=== PATIENT | female | born 1960 | race Caucasian/White ===

== ENCOUNTER 2017-11-02 08:00 | Day surgery (SDC) | payer OTHER, SELFPAY ==
[2017-11-02] VITALS (7 sets, daily range): BP systolic 80–146; BP diastolic 47–107; PULSE 71–86; RESP 16–18; TEMP 36.3–36.6; O2SAT 97–100; BMI 25.6
--- NOTE | 2017-11-02 09:49 | PCM.HP.STD ---
Problem List (1) Colon cancer screening Status: Acute History of Present Illness Date of Admission: 11/02/17 The patient is a 57 year old F who presents for screening colonoscopy. Past Medical History Allergies No Known Allergies Allergy (Verified 10/28/17 11:01) Home Medications: Ambulatory Orders Medication Instructions Recorded Black Cohosh 540 mg PO DAILY 10/28/17 Calcium Carb/Mag Ox/Zinc Sulf 1 each PO DAILY 10/28/17 [Imsbotp-Jgdlkinel-Qypo Tablet] Lisinopril [Zestril] 10 mg PO QHS 10/28/17 Multivitamin [Multiple Vitamins] 1 each PO DAILY 10/28/17 Paroxetine HCl [Paxil] 20 mg PO DAILY 10/28/17 Vitamin E 800 units PO DAILY 10/28/17 Smoking Status: Never smoker Review of Systems Cardiovascular: Denies: Chest Pain, Chest Pressure, Chest Tightness, Palpitations Respiratory: Denies: Cough, Hemoptysis, Shortness of breath at rest, Shortness of breath upon exertion, Wheezing Gastrointestinal: Denies: Abdominal Pain, Constipation, Diarrhea, Hematemesis, Nausea, Melena, Vomiting VTE Information - Inpt Only VTE Present on Admission: No VTE Mechan Device Prophylaxis: None VTE Pharm Prophylaxis ordered?: No Reason prophylaxis not ordered:: Treatment Not Indicated Patient Problems: Active and Suspected Problems Colon cancer screening (Acute) - Physical Exam Lungs: Clear to auscultation Cardiovascular: Regular rate, Regular Rhythm, No murmurs Abdomen: Bowel Sounds Present, Soft, Non Tender, Non-Distended Vital Signs Temp Pulse Resp BP Pulse Ox 97.6 F L 86 18 117/72 100 11/02/17 08:30 11/02/17 08:30 11/02/17 08:30 11/02/17 08:30 11/02/17 08:30 Oxygen Delivery Method Room Air Weight: 154 lb 1.65 oz Body Mass Index (BMI) 25.6 Assessment/Plan Active and Suspected Problems Colon cancer screening (Acute) My plan is to perform a colonoscopy.
--- NOTE | 2017-11-02 09:52 | PCM.OPRPT ---
Problem List (1) Colon cancer screening Status: Acute Report of Operation Date of Procedure: 11/02/17 Pre-Operative Diagnosis: z12.11 screening colonoscopy Post-Operative Diagnosis: Same Surgery/Procedure Performed:: [id number] colonoscopy Type of Anesthesia:: MAC Anesthesiologist: Yeison Med[place]in Description of Procedure: Patient was brought into the endoscopy suite. Placed in the left lateral decubitus position. Given graded anesthesia. Scope was inserted into the rectum and directed through the sigmoid colon, descending colon, transverse colon, ascending colon, to the cecum. Operative findings: 1. Cecum: Normal appearance no mass lesions normal ileocecal valve. 2. Ascending colon: Normal appearance no mass lesions 3. Transverse colon: Normal appearance no mass lesions. 4. Descending colon: Normal appearance no mass lesions. 5. Sigmoid colon: Normal appearance no mass lesions. I spent a long time going back and forth her sigmoid colon initially thought I saw a polyp was unable to get around it with a snare and the colon was significantly spasming. She did get an amp of glucagon. I went back and forth 4 times in this area and I was unable to relocate the polyp. In fact I am not even sure there was a polyp. However it was suspicious for looking sessile even though I could not reproduce it. 6. Rectum: Normal appearance no mass lesions retroflexion did not show any significant internal hemorrhoidal disease. The scope was withdrawn digital rectal exam was performed showing smooth anus with no nodules The patient will need another colonoscopy in 1-3 years. I believe it is important for us to put her on surveillance as if she did have a small polyp. - Admit VTE Documentation VTE Present on Admission: No VTE Mechan Device Prophylaxis: None VTE Pharm Prophylaxis ordered?: No Reason prophylaxis not ordered:: Treatment Not Indicated
== END 2017-11-02 10:49 | disposition home or self-care (01) ==
LOC: EN 08:01 → AC 08:04 → ACINP 08:27 → AC 08:29
PROVIDERS: Family Provider Student in an Organized Health Care Education/Training Program; PCP Student in an Organized Health Care Education/Training Program; Visit Provider Surgery
PROC: 0DJD8ZZ Inspection of Lower Intestinal Tract, Via Natural or Artificial Opening Endoscopic (ICD-10-PCS; CPT 45378; principal; 2017-11-02 08:55)
DX: Z12.11 Encounter for screening for malignant neoplasm of colon (principal); I10 Essential (primary) hypertension; Z79.899 Other long term (current) drug therapy
CPT/HCPCS: 45378; J7120; J1610; J2405

== ENCOUNTER → 2017-12-08 18:21 | Outpatient (CLI) | payer OTHER, SELFPAY | PROVIDERS: Visit Provider Nurse Practitioner Adult Health | DX: R31.9 Hematuria, unspecified (principal) | CPT/HCPCS: 87086; 87088 ==

== ENCOUNTER 2017-12-13 04:45 | Emergency (ER) | payer OTHER, SELFPAY ==
[2017-12-13 04:46] VITALS: BP 144/90; PULSE 79; RESP 17; TEMP 37; O2SAT 98; BMI 26.4
--- NOTE | 2017-12-13 05:18 | ED.VISSUMM ---
- ER Visit Summary Date of Service: 12/13/17 Chief Complaint: [] Abdominal pain History of Present Illness: The patient is a 57 F [] complaining of right lower quadrant/right abdominal/adnexal tenderness. She reports several extensive workups including negative CT scan of the abdomen/pelvis. She feels that the likely cause of her discomfort is from a mobile surgical tubal ligation clip that has migrated. She reportedly saw a urologist who informed her that her pain is not urological. She seen her PCP twice for the same complaint and was placed on short-term [place]. She is scheduled to see her MUNICIPAL ENGINEER to evaluate the possibility of removing the surgical clip and/or trying to definitively identify the cause of the pain. Physical Examination: [] Afebrile, vital signs stable. 57-year-old female no acute distress. Examination of the abdomen reveals mild right lower quadrant/right adnexal tenderness on palpation. No guarding or rebound tenderness. Remainder of exam is unremarkable. Test Results: [] None. Emergency Department Course and Treatment: [] In light of the patient having had several previous extensive workups including negative CT scans and evaluation by urology, I did not feel that any diagnostic or laboratory testing was warranted. Patient had a relatively benign examination and was amenable to a single dose of subcutaneous Dilaudid and a short-term prescription for [place] until she can see her MUNICIPAL ENGINEER and potentially other specialist to identify the underlying etiology of her discomfort. The leading thought is that this is likely from a surgical clip from a previous tubal ligation several years ago. Patient is amenable to this plan and close follow-up. Her is the bedside and will drive her home. Treatment Plan: [] Follow-up with MUNICIPAL ENGINEER for evaluation of possible surgical clip causing discomfort. Disposition: [] Discharge, stable. Impression: [] Acute right lower quadrant abdominal pain, unknown etiology This note was generated with [employer] dictation software. It may contain incorrect words, spelling, and punctuation that were not noted in review of the chart prior to signing ED Disposition - Plan for ED Patient: Chief Complaint: Flank Pain Referrals: Waldo Hernandez DO [Primary Care Provider] -
--- NOTE | 2017-12-13 05:22 | ED.DCSUM_ITS ---
- ER Visit Summary Date of Service: 12/13/17 Chief Complaint: [] Abdominal pain History of Present Illness: The patient is a 57 F [] complaining of right lower quadrant/right abdominal/adnexal tenderness. She reports several extensive workups including negative CT scan of the abdomen/pelvis. She feels that the likely cause of her discomfort is from a mobile surgical tubal ligation clip that has migrated. She reportedly saw a urologist who informed her that her pain is not urological. She seen her PCP twice for the same complaint and was placed on short-term [place]. She is scheduled to see her HOME HEALTH CNA to evaluate the possibility of removing the surgical clip and/or trying to definitively identify the cause of the pain. Physical Examination: [] Afebrile, vital signs stable. 57-year-old female no acute distress. Examination of the abdomen reveals mild right lower quadrant/right adnexal tenderness on palpation. No guarding or rebound tenderness. Remainder of exam is unremarkable. Test Results: [] None. Emergency Department Course and Treatment: [] In light of the patient having had several previous extensive workups including negative CT scans and evaluation by urology, I did not feel that any diagnostic or laboratory testing was warranted. Patient had a relatively benign examination and was amenable to a single dose of subcutaneous Dilaudid and a short-term prescription for [place] until she can see her HOME HEALTH CNA and potentially other specialist to identify the underlying etiology of her discomfort. The leading thought is that this is likely from a surgical clip from a previous tubal ligation several years ago. Patient is amenable to this plan and close follow-up. Her is the bedside and will drive her home. Treatment Plan: [] Follow-up with HOME HEALTH CNA for evaluation of possible surgical clip causing discomfort. Disposition: [] Discharge, stable. Impression: [] Acute right lower quadrant abdominal pain, unknown etiology This note was generated with [employer] dictation software. It may contain incorrect words, spelling, and punctuation that were not noted in review of the chart prior to signing ED Disposition - Plan for ED Patient: Chief Complaint: Flank Pain Referrals: Waldo Hernandez DO [Primary Care Provider] -
--- NOTE | 2017-12-13 05:22 | ED.DEP ---
ED Disposition - Plan for ED Patient: Disposition: Home or Assisted Living Chief Complaint: Flank Pain Instructions: ED Abdominal Pain Unkn Cause Prescriptions: Hydrocodone/Acetaminophen [[place] 5-325 Tablet] 1 ea PO 4X/DAY PRN PRN #12 tab PRN Reason: Pain Referrals: Waldo Hernandez DO [Primary Care Provider] -
--- NOTE | 2017-12-13 05:25 | DCINST.ED_ITS ---
ED Disposition - Plan for ED Patient: Disposition: Home or Assisted Living Chief Complaint: Flank Pain Instructions: ED Abdominal Pain Unkn Cause Prescriptions: Hydrocodone/Acetaminophen [[place] 5-325 Tablet] 1 ea PO 4X/DAY PRN PRN #12 tab PRN Reason: Pain Referrals: Waldo Hernandez DO [Primary Care Provider] -
[2017-12-13] MEDS: HYDROmorphone 1 MG/ML Syringe SC (05:31)
[2017-12-13 06:01] VITALS: BP 137/84; PULSE 81; RESP 16; O2SAT 97
--- NOTE | 2017-12-13 06:02 | ED.RN ---
NO REACTION NOTED AT INJECTION SITE.
== END 2017-12-13 06:02 | disposition home or self-care (01) ==
PROVIDERS: Emergency Provider Emergency Medicine; Family Provider Student in an Organized Health Care Education/Training Program; PCP Student in an Organized Health Care Education/Training Program
DX: R10.31 Right lower quadrant pain (principal); I10 Essential (primary) hypertension; Z98.51 Tubal ligation status; Z79.899 Other long term (current) drug therapy
CPT/HCPCS: 96372; 99282

== ENCOUNTER 2017-12-25 05:59 | Day surgery (SDC) | payer OTHER, SELFPAY ==
[2017-12-25] VITALS (10 sets, daily range): BP systolic 95–134; BP diastolic 58–80; PULSE 66–105; RESP 13–16; TEMP 36.2–36.8; O2SAT 90–98; BMI 25.4
--- NOTE | 2017-12-25 | FALS_PTH ---
PATIENT: RO MICHELLE LOC: [facility] [place] U#:[id number] AGE/SX: 57/F ROOM: RE12/25/[address]: Dr. Gela Croft MD : [id number] BED: DIS: 12/25/2017 SPEC #: [id number] RECD: 12/25/17 12:35 STATUS: RICCARDO MAKENNA #: [id number] COBY: 12/25/17 00:[address]: Gela Croft DEPT: SURGICAL PATHOLOGY RECD BY: Osman Dixon ENTERED: 12/25/17 12:35 SP TYPE: FALL TUBES OTHR DR: Dr. Waldo Hernandez, DO Tissues: Fallopian tube Procedures: Surgery Specimen Level II HEADER OPERATION: Diagnostic laparoscopy, bilateral salpingectomy PRE-OP DIAGNOSIS: Abdominal pain TISSUE SUBMITTED: Bilateral fallopian tubes and Filshie clips MICROSCOPIC DIAGNOSIS Bilateral fallopian tubes and Filshie clips, bilateral salpingectomy: Bilateral fallopian tubes including fimbrial ends, no pathologic diagnosis. Fragment of fibroadipose and fibroconnective tissue with reactive changes. RACHEL:liz 12/28/17 MICROSCOPIC DESCRIPTION Slides are reviewed. GROSS DESCRIPTION Received is one container labeled with the patient's name and designated bilateral fallopian tubes and Filshie clips. The specimen consists of two fallopian tubes with an average length of 3 cm and has a maximal diameter of 0.5 cm. Both fallopian tubes contain normal fimbriated ends. Also present in the specimen container is an intact Filshie clip with attached fibrofatty tissue measuring 1.5 x 1 x 0.8 cm. One fallopian tube is inked in black ink. Sections of the fallopian tubes do not reveal mass lesions. Physical Biochemist sections of the fallopian tubes and fibrofatty tissue are submitted in two cassettes. / AM:liz 12/25/17 TC:4 CPT: 56387 x2
--- NOTE | 2017-12-25 06:07 | EKG12_ITS ---
Test Reason : PRE OP Blood Pressure : / mmHG Vent. Rate : 068 BPM Atrial Rate : 068 BPM P-R Int : 154 ms QRS Dur : 084 ms QT Int : 388 ms P-R-T Axes : 045 015 049 degrees QTc Int : 412 ms Normal sinus rhythm Normal ECG Confirmed by DAYANA MAR, JOAQUIN ([id number]), assistant editor EVELYNE ELIZABETH ([id number]) on 12/31/2017 11:50:38 AM Referred By: Gela Croft Confirmed By:JOAQUIN ANNE MD
[2017-12-25 06:44] LABS: Hematocrit 42.6 % (37-47); Hemoglobin 14.4 g/dl (12.0-15.0); Mean Corp Hgb Conc 33.8 g/gl (32-36); Mean Corpuscular Hgb 31.6 pg (27.0-32.0); Mean Corpuscular Volume 93.4 fL (81-99); Platelet Count 265 K/mm3 (150-450); RBC Distribution Width CV 12.8 % (11.6-14.6); Red Blood Count 4.56 M/mm3 (4.2-5.4); Scan Indicated on CBC? Y/N NO; White Blood Count 5.5 K/mm3 (4.4-11.0)
[2017-12-25 06:46] LABS: International Normalized Ratio 0.9; Prothrombin Time (Protime)PT. 12.6 SECONDS (11.7-14.9)
[2017-12-25 06:47] LABS: Partial Thromboplast Time 29.1 Seconds (24.1-36.2)
[2017-12-25 06:57] LABS: AST(SGOT) 19 U/L (15-37); Alanine Aminotransfer ALT/SGPT 30 U/L (13-56); Albumin, Serum 4.4 g/dL (3.2-5.0); Alkaline Phosphatase 77 U/L (45-117); Bilirubin, Direct 0.11 mg/dL (0.00-0.30); Protein, Total 7.4 g/dL (6.4-8.2)
[2017-12-25] MEDS: Bupivacaine Mpf 0.5% 30 ML VIAL (07:03)
--- NOTE | 2017-12-25 08:21 | PCM.IMDPSTOP ---
Immediate Post-Op Note Date of Procedure: 12/25/17 Primary Surgeon/Physician: Gela Croft drip box tender: Deidre Gonzales RN Pre-Operative Diagnosis: RLQ pain, R flank pain, prior filshie clip BTO with migration of filshie clips Post-Operative Diagnosis: Same. Filshie clips both with embedment in omentum Surgery/Procedure Performed:: Laparoscopic bilateral distal salpingectomy. Lysis of adhesions, removal of filshie clips Description of Surgical Findings:: bilateral fallopian tube transection. L fallopian tube superficial omentum L pelvis. R filshie clip within omentum at RLQ Estimated Blood Loss: 50 Specimen's removed: two filshie clips, and bilateral distal fallopian tubes Drains: fatou whalen Type of Anesthesia:: General - Michel Coteat, CIO - Admit VTE Documentation VTE Present on Admission: No VTE Mechan Device Prophylaxis: SCD's VTE Pharm Prophylaxis ordered?: No
--- NOTE | 2017-12-25 08:29 | OP.PN_ITS ---
Immediate Post-Op Note Date of Procedure: 12/25/17 Primary Surgeon/Physician: Gela Croft cosmetics and toiletries salesperson: Deidre Gonzales RN Pre-Operative Diagnosis: RLQ pain, R flank pain, prior filshie clip BTO with migration of filshie clips Post-Operative Diagnosis: Same. Filshie clips both with embedment in omentum Surgery/Procedure Performed:: Laparoscopic bilateral distal salpingectomy. Lysis of adhesions, removal of filshie clips Description of Surgical Findings:: bilateral fallopian tube transection. L fallopian tube superficial omentum L pelvis. R filshie clip within omentum at RLQ Estimated Blood Loss: 50 Specimen's removed: two filshie clips, and bilateral distal fallopian tubes Drains: fatou whalen Type of Anesthesia:: General - Michel Coteat, TIMBER SPRINKLER - Admit VTE Documentation VTE Present on Admission: No VTE Mechan Device Prophylaxis: SCD's VTE Pharm Prophylaxis ordered?: No
--- NOTE | 2017-12-25 08:32 | PCM.DC.TUB ---
Discharge Diet: No Restrictions Discharge Activity: May not drive while taking narcotic pain medications., May Shower, May Take a Tub Bath Return to work on:: 12/28/17 May resume sexual activity in: 1 week Additional Activity Instructions:: Ambulate often the next week after surgery. Nothing in the vagina for 5 days. Call your doctor if you observe: Fever of 101 or Higher, Inability to urinate, Inability to have a bowel movement, Using more than one pad per hour, Uncontrolled pain Change Dressing in (Days):: 4 Remove Dressing in (days):: 4 Cleanse incision/area with: Soap & Water, Keep Dressing Clean & Dry Allergies/Adverse Reactions: Allergies No Known Allergies Allergy (Verified 10/28/17 11:01) Medications to take at Discharge Black Cohosh 540 mg PO DAILY 10/28/17 Calcium Carb/Mag Ox/Zinc Sulf [Flyyaaf-Vsdsssoza-Yedl Tablet] 1 each PO DAILY 10/28/17 Lisinopril [Zestril] 10 mg PO QHS 10/28/17 Multivitamin [Multiple Vitamins] 1 each PO DAILY 10/28/17 Paroxetine HCl [Paxil] 20 mg PO DAILY 10/28/17 Vitamin E 800 units PO DAILY 10/28/17 Hydrocodone/Acetaminophen [[place] 5-325 Tablet] 1 ea PO 4X/DAY PRN PRN #12 tab 12/13/17 Hydrocodone/Acetaminophen [[place] 5-325 Tablet] 1 - 2 each PO Q6H PRN PRN 3 Days #10 tablet 12/25/17 The following prescriptions were given: Hydrocodone/Acetaminophen [[place] 5-325 Tablet] 1 - 2 each PO Q6H PRN PRN 3 Days #10 tablet PRN Reason: Mod-Severe Pain (-04/21) Primary Care Physician: Waldo Hernandez DO [Primary Care Provider] - Please Follow Up With: Gela Croft MD - [phone] When: in 1-2 wk for postop check
--- NOTE | 2017-12-25 08:37 | DCINST_ITS ---
Discharge Diet: No Restrictions Discharge Activity: May not drive while taking narcotic pain medications., May Shower, May Take a Tub Bath Return to work on:: 12/28/17 May resume sexual activity in: 1 week Additional Activity Instructions:: Ambulate often the next week after surgery. Nothing in the vagina for 5 days. Call your doctor if you observe: Fever of 101 or Higher, Inability to urinate, Inability to have a bowel movement, Using more than one pad per hour, Uncontrolled pain Change Dressing in (Days):: 4 Remove Dressing in (days):: 4 Cleanse incision/area with: Soap & Water, Keep Dressing Clean & Dry Allergies/Adverse Reactions: Allergies No Known Allergies Allergy (Verified 10/28/17 11:01) Medications to take at Discharge Black Cohosh 540 mg PO DAILY 10/28/17 Calcium Carb/Mag Ox/Zinc Sulf [Lqrebxt-Zlwpiecnn-Yxdi Tablet] 1 each PO DAILY Lisinopril [Zestril] 10 mg PO QHS 10/28/17 Multivitamin [Multiple Vitamins] 1 each PO DAILY 10/28/17 Paroxetine HCl [Paxil] 20 mg PO DAILY 10/28/17 Vitamin E 800 units PO DAILY 10/28/17 Hydrocodone/Acetaminophen [[place] 5-325 Tablet] 1 ea PO 4X/DAY PRN PRN #12 tab Hydrocodone/Acetaminophen [[place] 5-325 Tablet] 1 - 2 each PO Q6H PRN PRN 3 Days #10 tablet 12/25/17 The following prescriptions were given: Hydrocodone/Acetaminophen [[place] 5-325 Tablet] 1 - 2 each PO Q6H PRN PRN 3 Days #10 tablet PRN Reason: Mod-Severe Pain (-04/21) Primary Care Physician: Waldo Hernandez DO [Primary Care Provider] - Please Follow Up With: Gela Croft MD - [phone] When: in 1-2 wk for postop check
--- NOTE | 2017-12-25 17:31 | OP.PCM_ITS ---
Operative Report Date of Procedure: 12/25/17 PROCEDURE: Laparoscopic Bilateral Salpingectomy Removal of (migrated) Filshie clips PREOPERATIVE DIAGNOSIS: RLQ pain Right flank pain H/O bilateral tubal occlusion with Filshie clips CT scan showing Filshie clip migration POSTOPERATIVE diagnosis: RLQ pain Right flank pain H/O bilateral tubal occlusion with Filshie clips CT scan showing Filshie clip migration Surgeon: Gela Croft MD Anesthesia: General Anesthesia. Michel Bose CRNA Automobile Brakes Bonder: Deidre Gonzales RN EBL: 50 cc Complications: None Drains: Red Obando catheter used to drain the bladder prior to initiation of the case Fluids: LR replacement Findings; Normal appearing, anteverted uterus. Bilateral Fallopian tubes transected and Filshie clips not in place. Ovaries are WNL. Gross inspection of bowel, omentum. liver edge also WNL. The L Filshie clip was at the LLQ of the abdomen superficially placed in omentum with adhesions of the omentum to anterior abdominal wall. (photo taken) R Filshie clip was noted embedded into the omentum at RLQ. Both Filshie clips were removed and sent to Pathology along with the distal fallopian tubes. Narrative account: After the risks, benefits, alternatives of procedure had been reviewed with the patient, informed consent was obtained. The patient was taken back to the Operating room with an IV running. she was positioned on the operating table in dorsal supine position, where she was given general anesthesia. Once asleep she was repositioned to the dorsal lithotomy position and prepped and draped in the usual sterile fashion. A red Obando catheter was used to drain the bladder prior to initiating the case. A single toothed tenaculum and Carina cannula were placed into the cervix to allow manipulation of the uterus and cervix during the case. Attention was then turned to the anterior abdominal wall where 0.5 % Marcaine was instilled at the suprapubic and infraumbilical skin and at a point midway between in the midline. The skin was infiltrated at the LUQ also. Skin incisions were then created in the midline at the suprapubic skin and at the infraumbilical skin and midway between the two and at the LUQ approximately 4 cm inferior to the costal margin. There was brisk bleeding noted from all incisions (consistent with patient's NSAID use). The stomach was suctioned by anesthesia. While maintaining upward traction of the anterior abdominal wall at the LUQ a Veress needle was inserted through the skin incision there into the peritoneal cavity. There was free drop of saline , low opening pressure and free flow of CO2 noted. Once the intraabdominal pressure had reached 12 mm of mercury the Veress needle was removed and a bladeless 5 mm trocar was placed through the LUQ skin incision into the peritoneal cavity. Correct placement was confirmed using the scope. There wer no periumbilical adhesions noted. The 5 mm trocar was removed from the LUQ and placed through the infraumbilical skin into the peritoneal cavity. Correct placement was confirmed using the laparoscope. Under direct visualization then with the patient in Trendelenburg position, a bladeless 10 mm trocar was inserted in through suprapubic skin incision into the peritoneal cavity and a 5 mm trocar was placed at a point midway between the infraumbilical and suprapubic trocars. The uterus as anteverted and both ovaries and fallopian tubes were inspected. A Filshie clip was noted in the LLQ, superficially placed in the omentum with adhesions to the anterior abdominal wall. Using a grasper and a [place] tip LigaSure the adhesions were taken down and the Filshie clip was removed and brought through the suprapubic trocar and set aside. The R Filshie clip was not immediately visualized. Both fallopian tubes had been transected by prior BTO, Filshie clip applications. The distal R fallopian tube was grasped and retracted medially and using a LigaSure device the fallopian tube was excised from the ovary and mesosalpinx. Excellent hemostasis was noted at the excision site. The R fallopian tube was brought through the suprapubic trocar and set aside for later pathology review. In a similar manner the distal end of the L fallopian tube was grasped and retracted medially and the fallopian tube was excised and removed from the abdominal cavity through the suprapubic trochar. The Fallopian tubes were set aside to be sent to pathology. Excellent hemostasis was noted by visualization of the pelvis, ovaries, and remaining mesosalpinx. Using a probe and a grasper the omentum was then inspected at the R side of the abdomen/pelvis and the patient was taken partially out of Trendelenburg for this step. A glint of metal was noted at the RLQ embedded into the omentum. The omentum was further inspected and the Filshie clip was seen and dissected from the omentum and removed then through the suprapubic incision. The omentum and surgical field was inspected. Excellent hemostasis was noted. Mian as dusted over the omentum at the sites of the Filshie clip removal. At this point the the procedure was terminated. The pneumoperitoneum was reduced and the instruments and trocars were removed from he the anterior abdominal wall skin. The skin incisions were closed with 4-0 Monocryl in a subcuticular fashion. Dermabond and OpSites were applied to the skin. The Single toothed tenaculum and Carina cannula were removed from the vagina. The patient was returned to dorsal supine position. She was awakened from general anesthesia. She was transferred to the recovery room bed in stable condition after tolerating the procedure well. Sponge, lap, needle and instrument counts were correct x two. Medications given preop and intraoperatively included: 10 cc of 1/2 % Marcaine --used as a subcutaneous block. For a complete listing of medications given preop and intraop , please see the anesthesia record.
== END 2017-12-25 11:05 | disposition home or self-care (01) ==
LOC: SDC 05:59 → AC 06:00
PROVIDERS: Family Provider Student in an Organized Health Care Education/Training Program; PCP Student in an Organized Health Care Education/Training Program; Visit Provider Obstetrics & Gynecology
PROC: (CPT 49320; principal; 2017-12-25 07:15)
DX: T83.428A Displacement of other prosthetic devices, implants and grafts of genital tract, initial encounter (principal); R10.31 Right lower quadrant pain; Z40.03 Encounter for prophylactic removal of fallopian tube(s); Z98.51 Tubal ligation status; I10 Essential (primary) hypertension; Z79.899 Other long term (current) drug therapy
CPT/HCPCS: 58661; 36415; 80076; 85027; 85610; 85730; 86850; 86900; 88302; 93005; J7120; J2405

== ENCOUNTER → 2018-12-03 14:56 | Outpatient (CLI) | payer OTHER, SELFPAY | PROVIDERS: Family Provider Student in an Organized Health Care Education/Training Program; PCP Student in an Organized Health Care Education/Training Program; Referring Provider Obstetrics & Gynecology; Visit Provider Obstetrics & Gynecology | DX: R30.0 Dysuria (principal); R35.0 Frequency of micturition | CPT/HCPCS: 87086; 87088 ==

== ENCOUNTER → 2018-12-22 08:00 | Outpatient (CLI) | payer OTHER, SELFPAY ==
[2017-12-25 06:17] VITALS: BMI 25.4
--- NOTE | 2018-12-22 08:04 | BI_ITS ---
MAMMOGRAPHY - BILATERAL SCREENING REASON FOR EXAM: Female, 58 years old. Routine annual screening examination. PERTINENT HISTORY: Non-contributory. TECHNIQUE: Digital bilateral breast jorgito (3D mammographic acquisition) in the CC and MLO projections. 2-D mediolateral oblique (MLO) and craniocaudad (CC) views of both breasts were obtained. CAD: Full Field Digital Mammography with Computer Added Detection was performed. COMPARISON: Comparison is made with prior study dated August 31, 2014 and June 14, 2011. FINDINGS: Breast Composition: There are scattered areas of fibroglandular density. There are no dominant masses or suspicious calcifications. The previously seen well-defined nodular density in the axillary region of the left breast has decreased in size. It presently measures 6 mm. No other significant abnormalities are identified. There has been no significant change since the prior study. BI/SCREEN MAMM (CAD) W/JORGITO BILAT IMPRESSION: Stable bilateral screening mammogram. Yearly follow-up mammogram recommended. (A) ASSESSMENT CATEGORY: BIRADS Category 2: Benign. A letter regarding these results will be sent to the patient by the facility within 30 days. Approximately 10% of breast cancers are not detected by mammography. A normal mammogram should not delay biopsy of a clinically suspicious abnormality. [id number] Electronically Signed: Endy Mulligan, at 9:46 EDT , Service support ,
== END ==
PROVIDERS: Family Provider Student in an Organized Health Care Education/Training Program; PCP Student in an Organized Health Care Education/Training Program; Referring Provider Obstetrics & Gynecology; Visit Provider Obstetrics & Gynecology
DX: Z12.31 Encounter for screening mammogram for malignant neoplasm of breast (principal)
CPT/HCPCS: 77063; 77067

== ENCOUNTER → 2020-06-08 07:50 | Outpatient (CLI) | payer OTHER, SELFPAY ==
--- NOTE | 2020-06-08 08:16 | BI_ITS ---
MAMMOGRAPHY - BILATERAL SCREENING REASON FOR EXAM: Female, 60 years old. Routine annual screening examination. PERTINENT HISTORY: No family history of breast cancer. TECHNIQUE: Digital bilateral breast jorgito (3D mammographic acquisition) in the CC and MLO projections. 2-D mediolateral oblique (MLO) and craniocaudad (CC) views of both breasts were obtained. CAD: Full Field Digital Mammography with Computer Added Detection was performed. COMPARISON: 12/22/2018 FINDINGS: Breast Composition: Scattered There are no dominant masses or suspicious calcifications. No other significant abnormalities are identified. BI/SCREEN MAMM (CAD) W/JORGITO BILAT IMPRESSION: Stable bilateral screening mammogram. Yearly follow-up mammogram recommended. (A) ASSESSMENT CATEGORY: BIRADS Category 1: Negative. A letter regarding these results will be sent to the patient by the facility within 30 days. Approximately 10% of breast cancers are not detected by mammography. A normal mammogram should not delay biopsy of a clinically suspicious abnormality. [id number] Electronically Signed: Casey Nieto, at 16:07 EST Tel , Service support ,
== END ==
PROVIDERS: PCP Student in an Organized Health Care Education/Training Program; Referring Provider Student in an Organized Health Care Education/Training Program; Visit Provider Student in an Organized Health Care Education/Training Program
DX: Z12.31 Encounter for screening mammogram for malignant neoplasm of breast (principal)
CPT/HCPCS: 77063; 77067

== ENCOUNTER 2021-07-10 18:22 | Outpatient (CLI) | payer OTHER, SELFPAY ==
[2021-07-10 18:38] VITALS: BP 145/88; PULSE 88; RESP 16; TEMP 37; O2SAT 99; BMI 26.6
[2021-07-10] MEDS: 0.9% Saline Lock 10 ML Syringe IV (18:42)
[2021-07-10 19:39] VITALS: BP 142/86; PULSE 81; RESP 16; TEMP 36.8; O2SAT 100
[2021-07-10 20:26] VITALS: BP 145/93; PULSE 83; RESP 16; TEMP 37; O2SAT 99
== END 2021-07-10 20:38 | disposition home or self-care (01) ==
LOC: MS3OUT 18:22 → MS3 18:24
PROVIDERS: PCP Student in an Organized Health Care Education/Training Program; Referring Provider Nurse Practitioner Adult Health; Visit Provider Nurse Practitioner Adult Health
DX: Z23 Encounter for immunization (principal); U07.1 COVID-19
CPT/HCPCS: J7050; M0245; Q0245; A4216

== ENCOUNTER 2021-09-10 14:13 | Outpatient (CLI) | payer OTHER, SELFPAY ==
[2021-09-16 13:33] LABS: HPV APTIMA, High Risk Negative (Negative)
== END 2021-09-10 23:59 | disposition home or self-care (01) ==
LOC: LABSPEC 14:14
PROVIDERS: PCP Student in an Organized Health Care Education/Training Program; Visit Provider Student in an Organized Health Care Education/Training Program
DX: Z12.4 Encounter for screening for malignant neoplasm of cervix (principal)
CPT/HCPCS: 87624; 88175; G0145

== ENCOUNTER → 2022-02-13 | Outpatient (CLI) | payer OTHER, SELFPAY ==
--- NOTE | 2022-02-13 12:56 | BI_ITS ---
MAMMOGRAPHY - BILATERAL SCREENING 3-D TOMOSYNTHESIS REASON FOR EXAM: Female, 62 years old. Routine screening PERTINENT HISTORY: No significant family history. TECHNIQUE: 2-D mammograms and 3-D Tomosynthesis of the breast (s) were performed. CAD was performed. COMPARISON: 06/08/2020 FINDINGS: The breast composition is composed of scattered fibroglandular density. Scattered benign calcifications are seen. No dense spiculated masses or suspicious microcalcifications are identified. No architectural distortion is identified. There is no skin thickening or retraction. There has been no significant change since the prior study. BI/SCRN MAMM (CAD)W/JORGITO BILAT IMPRESSION: No mammographic signs of malignancy. Routine yearly mammograms recommended. ASSESSMENT CATEGORY: BIRADS Category 1: Negative. A letter regarding these results will be sent to the patient by the facility within 30 days. FOLLOW UP RECOMMENDATION: Yearly follow up mammogram recommended. (A) Approximately 10% of breast cancers are not detected by mammography. A normal mammogram should not delay biopsy of a clinically suspicious abnormality. Electronically Signed: Shadi Casper MD at 12:46 EDT ,
== END | disposition home or self-care (01) ==
LOC: OPBI 12:51
PROVIDERS: PCP Student in an Organized Health Care Education/Training Program; Visit Provider Student in an Organized Health Care Education/Training Program
DX: Z12.31 Encounter for screening mammogram for malignant neoplasm of breast (principal)
CPT/HCPCS: 77063; 77067

== ENCOUNTER → 2024-08-11 | Outpatient (CLI) | payer OTHER, SELFPAY ==
--- NOTE | 2024-08-11 16:03 | BI_ITS ---
PROCEDURE: SCRN MAMM (CAD)W/JORGITO BILAT REASON FOR EXAM: F, Age 64 y/o, annual mammogram. No family history. TECHNIQUE: Bilateral screening digital breast tomosynthesis with 2D and 3D images. Computer aided detection. COMPARISON: Prior exam(s) dating back to comparison is made with prior study February 13, 2022.. FINDINGS: There are scattered areas of fibroglandular density. No suspicious masses, areas of developing architectural distortion, or suspicious calcifications. Stable examination. BI/SCRN MAMM (CAD)W/JORGITO BILAT IMPRESSION: BI-RADS 1: NEGATIVE. RECOMMEND ANNUAL MAMMOGRAPHIC SCREENING. Follow-up code: Routine Follow-up The patient will be notified of the results by letter. Reading Location: [place] [id number]
== END | disposition home or self-care (01) ==
PROVIDERS: PCP Student in an Organized Health Care Education/Training Program; Referring Provider Student in an Organized Health Care Education/Training Program; Visit Provider Student in an Organized Health Care Education/Training Program
DX: Z12.31 Encounter for screening mammogram for malignant neoplasm of breast (principal)
CPT/HCPCS: 77063; 77067